=== PATIENT | female | born 1975 | race Caucasian/White ===

== ENCOUNTER 2021-07-02 13:05 | Emergency (ER) | payer BC ==
[2021-07-02] MEDS: Ondansetron 4 MG Tab.DIS PO ONE ×2 (13:18→13:37)
[2021-07-02] MEDS: HYDROmorphone 1 MG/ML Syringe SUBCUT ONE (13:33)
[2021-07-02] MEDS: Take Home: Ondansetron 4 MG Tab.DIS, 2 Tab Pack PO ONE (14:06)
== END 2021-07-02 14:22 | disposition home or self-care (01) ==
LOC: CC.ED 13:05
DX: S06.0X0A Concussion without loss of consciousness, initial encounter (principal); R42 Dizziness and giddiness; R11.0 Nausea; Z88.2 Allergy status to sulfonamides; Z88.1 Allergy status to other antibiotic agents; Z79.899 Other long term (current) drug therapy; W00.0XXA Fall on same level due to ice and snow, initial encounter
CPT/HCPCS: 70450; 96372; 99283; 99284-25; A9270-GY; J1170

== ENCOUNTER 2022-08-31 17:42 | Emergency (ER) | payer BC ==
[2022-08-31] MEDS ORDERED: Sodium Chloride 0.9% 1,000 ML IV ONE (18:23)
[2022-08-31] MEDS ORDERED: Ketorolac 30 MG/ML SDV IVPUSH ONE (18:36)
[2022-08-31 18:37] VITALS: BP 130/90; PULSE 92
[2022-08-31] MEDS ORDERED: Ondansetron 4 MG/2 ML SDV IVPUSH ONE (18:37)
[2022-08-31] MEDS ORDERED: Iopamidol 755 Mg/ML 100 ML Bottle IVPUSH ONE (19:08)
[2022-08-31] MEDS ORDERED: Morphine 4 MG/ML VIAL IVPUSH ONE (19:39)
[2022-08-31] MEDS ORDERED: Take Home: Acetaminophen/HYDROcodone 325-5 MG, 2 Tab Pack PO ONE (20:28)
== END 2022-08-31 20:46 | disposition home or self-care (01) ==
LOC: CC.ED 17:42
DX: R10.31 Right lower quadrant pain (principal); R10.11 Right upper quadrant pain; R10.33 Periumbilical pain; R10.32 Left lower quadrant pain; E03.9 Hypothyroidism, unspecified; Z88.2 Allergy status to sulfonamides; Z79.899 Other long term (current) drug therapy; Z20.822 Contact with and (suspected) exposure to COVID-19
CPT/HCPCS: 36415; 74177; 80053; 81025; 82150; 83690; 85025; 96361; 96374; 96375; 99284; 99284-25; A9270-GY; J1885; J2270; J2405; J7030; Q9967; U0002

== ENCOUNTER 2023-03-24 11:35 | Emergency (ER) | payer BC | END 2023-03-24 11:57 | disposition home or self-care (01) | LOC: CC.ED 11:35 | DX: J01.90 Acute sinusitis, unspecified (principal); E03.9 Hypothyroidism, unspecified; Z88.2 Allergy status to sulfonamides; Z88.1 Allergy status to other antibiotic agents; Z79.899 Other long term (current) drug therapy | CPT/HCPCS: 99283 ==